=== PATIENT | female | born 1985 | race Caucasian/White ===

== ENCOUNTER 2020-06-25 13:15 | Emergency (ER) | payer SELFPAY ==
[~2020-06-25] VITALS: Ht 162.6 cm; Wt 86.0 kg
--- NOTE | 2020-06-25 14:05 | PHYS DOC ---
General Adult EDM: Chief Complaint: DIARRHEA HPI: HPI: Patient is a 34 year old female who presented to ER due to left lower abdominal pain associated with nausea vomiting diarrhea for 2 days. Patient denies any cough or fever, no chest pain. Patient denies any blood in her stool. Patient said all the symptoms started after she ate some homemade burrito. Review of Systems: Review of Systems: Constitutional: Denies fever or chills. [] Eyes: Denies change in visual acuity. [] HENT: Denies nasal congestion or sore throat. [] Respiratory: Denies cough or shortness of breath. [] Cardiovascular: Denies chest pain or edema. [] GI: Positive for abdominal pain, nausea vomiting, diarrhea. : Denies dysuria. [] Musculoskeletal: Denies back pain or joint pain. [] Integument: Denies rash. [] Neurologic: Denies headache, focal weakness or sensory changes. [] Endocrine: Denies polyuria or polydipsia. [] Lymphatic: Denies swollen glands. [] Psychiatric: Denies depression or anxiety. [] Heart Score: C/O Chest Pain: N/A Risk Factors: Risk Factors: DM, Current or recent (<one month) smoker, HTN, HLP, family history of CAD, obesity. Risk Scores: Score 0 - 3: 2.5% MACE over next 6 weeks - Discharge Home Score 4 - 6: 20.3% MACE over next 6 weeks - Admit for Clinical Observation Score 7 - 10: 72.7% MACE over next 6 weeks - Early Invasive Strategies Physical Exam: PE: Constitutional: Well developed, well nourished, no acute distress, non-toxic appearance. [] HENT: Normocephalic, atraumatic, bilateral external ears normal, oropharynx moist, no oral exudates, nose normal. [] Eyes: PERRLA, EOMI, conjunctiva normal, no discharge. [] Neck: Normal range of motion, no tenderness, supple, no stridor. [] Cardiovascular:Heart rate regular rhythm, no murmur [] Lungs & Thorax: Bilateral breath sounds clear to auscultation [] Abdomen: Bowel sounds normal, soft, LLQ tenderness TO PALPATION, NO GUARDING, NO REBOUND, no masses, no pulsatile masses. [] Skin: Warm, dry, no erythema, no rash. [] Back: No tenderness, no CVA tenderness. [] Extremities: No tenderness, no cyanosis, no clubbing, ROM intact, no edema. [] Neurologic: Alert and oriented X 3, normal motor function, normal sensory function, no focal deficits noted. [] Psychologic: Affect normal, judgement normal, mood normal. [] Current Patient Data: Labs: Laboratory Tests Test 06/25/20 14:10 06/25/20 14:20 White Blood Count 10.3 x10^3/uL Red Blood Count 4.14 x10^6/uL Hemoglobin 13.0 g/dL Hematocrit 38.5 % Mean Corpuscular Volume 93 fL Mean Corpuscular Hemoglobin 31 pg Mean Corpuscular Hemoglobin Concent 34 g/dL Red Cell Distribution Width 13.2 % Platelet Count 296 x10^3/uL Neutrophils (%) (Auto) 78 % Lymphocytes (%) (Auto) 16 % Monocytes (%) (Auto) 5 % Eosinophils (%) (Auto) 0 % Basophils (%) (Auto) 0 % Neutrophils # (Auto) 8.1 x10^3/uL Lymphocytes # (Auto) 1.7 x10^3/uL Monocytes # (Auto) 0.5 x10^3/uL Eosinophils # (Auto) 0.0 x10^3/uL Basophils # (Auto) 0.0 x10^3/uL Urine Collection Type Unknown Urine Color Yellow Urine Clarity Clear Urine pH 7.5 Urine Specific [place] 1.015 Urine Protein Negative mg/dL Urine Glucose (UA) Negative mg/dL Urine Ketones (Stick) Negative mg/dL Urine Blood Negative Urine Nitrite Negative Urine Bilirubin Negative Urine Urobilinogen Dipstick 0.2 mg/dL Urine Leukocyte Esterase Negative Urine RBC 1-2 /HPF Urine WBC 5-10 /HPF Urine Squamous Epithelial Cells Mod /LPF Urine Bacteria Moderate /HPF Sodium Level 144 mmol/L Potassium Level 4.2 mmol/L Chloride Level 107 mmol/L Carbon Dioxide Level 24 mmol/L Anion Gap 13 Blood Urea Nitrogen 17 mg/dL Creatinine 0.6 mg/dL Estimated GFR (Cockcroft-Gault) 115.1 BUN/Creatinine Ratio 28 Glucose Level 93 mg/dL Calcium Level 8.4 mg/dL Magnesium Level 2.1 mg/dL Total Bilirubin 0.2 mg/dL Aspartate Amino Transf (AST/SGOT) 21 U/L Alanine Aminotransferase (ALT/SGPT) 21 U/L Alkaline Phosphatase 73 U/L Total Protein 6.9 g/dL Albumin 4.0 g/dL Albumin/Globulin Ratio 1.4 Bedside Urine HCG, Qualitative Hcg negative Current Medications Medications (Trade) Dose Ordered Sig/Nishi Route PRN Reason Start Time Stop Time Status Last Admin Dose Admin Sodium Chloride 1,000 ml @ 1,000 mls/hr 1X ONCE IV 06/25/20 14:15 06/25/20 15:14 DC 06/25/20 14:30 Ondansetron HCl (Zofran) 4 mg 1X ONCE IVP 06/25/20 14:15 06/25/20 14:24 DC 06/25/20 14:30 Iohexol (Omnipaque 300 Mg/ml) 75 ml 1X ONCE IV 06/25/20 15:30 06/25/20 15:31 DC 06/25/20 15:53 Info (CONTRAST GIVEN -- Rx MONITORING) 1 each PRN DAILY PRN MC SEE COMMENTS 06/25/20 15:45 06/27/20 15:44 EKG: EKG: [] Radiology/Procedures: Radiology/Procedures: [][facility] [address] [place], [place] [id number] IMAGING REPORT Signed PATIENT: CLARK MCKEON ACCOUNT: [id number] : 1985 LOCATION: ER AGE: 34 SEX: F EXAM STATUS: REG ER ORD. PHYSICIAN: CHRISTI BANEGAS DO REASON: LOWER ABDOMINAL PAIN PROCEDURE: CT ABD PELV W/ IV CONTRST ONLY EXAM: CT Abdomen and Pelvis with IV contrast CLINICAL HISTORY: Lower abdominal pain COMPARISON: none TECHNIQUE: Helical CT of the abdomen and pelvis was performed following the administration of intravenous contrast. Axial, coronal and sagittal reformatted images were generated. PQRS compliance statement - One or more of the following individualized dose reduction techniques were utilized for this study: 1. Automated exposure control 2. Adjustment of the mA and/or kV according to patient size 3. Use of iterative reconstruction technique FINDINGS: Lower Chest: Linear opacities lower lobes likely scarring/atelectasis. Abdomen and Pelvis: No focal liver lesion. Gallbladder is contracted. No biliary ductal dilatation. Spleen is unremarkable. Adrenal glands are normal. Pancreas is unremarkable. Symmetric nephrograms. No focal renal lesion. No hydronephrosis. No hydroureter. Moderate distention of the bladder which is otherwise unremarkable. Moderate to large volume colonic stool content is seen. No small or large bowel dilatation. No bowel obstruction. Appendix is not seen but no significant pericecal inflammatory changes are seen. No abdominal or pelvic ascites. Aorta is normal in caliber. No abdominal or pelvic lymphadenopathy. Tampon is seen. Bones: No aggressive osseous lesion is seen. IMPRESSION: Moderate distention of the bladder, can be correlated for possible voluntary or involuntary causes of urinary retention. No bowel obstruction. Electronically signed by: Brandon Edge MD (06/25/2020 4:19 PM) [facility] DICTATED and SIGNED BY: BRANDON EDGE MD DATE: 06/25/20 [id number] 0 Course & Med Decision Making: Course & Med Decision Making Pertinent Labs and Imaging studies reviewed. (See chart for details) Patient is a 33-year-old female who presented to ER due to left lower abdominal pain with nausea vomiting diarrhea, CT scan of abdomen pelvic did not show any acute problem, her lab work was normal limits. Patient will be discharged home Dragon Disclaimer: Dragon Disclaimer: This electronic medical record was generated, in whole or in part, using a voice recognition dictation system. Departure Departure Impression: Primary Impression: Gastroenteritis Disposition: HOME / SELF CARE / HOMELESS Condition: IMPROVED Patient Instructions: Viral Gastroenteritis Additional Instructions: Thank you for visiting our Emergency Department. We appreciate you trusting us with your care. If any additional problems come up don't hesitate to return to visit us. Please follow up with your primary care provider so they can plan additional care if needed and know about the problem that you had. If symptoms worsen come back to the Emergency Department. Any concerning symptoms that start such as chest pain, shortness of air, weakness or numbness on one side of the body, running high fevers or any other concerning symptoms return to the ER. CHRISTI BANEGAS DO June 25, 2020 14:05
[2020-06-25] MEDS ORDERED: ONDANSETRON PF 4 MG/2 ML VIAL. IVP ONE (14:15)
[2020-06-25] MEDS ORDERED: IV NORMAL SALINE 1000ML BAG 1,000 ML IV ONE (14:15)
[2020-06-25 14:29] LABS: BASO % 0 % (0-3); EOS % 0 % (0-3); HEMATOCRIT 38.5 % (36.0-47.0); LYMPH # 1.7 x10^3/uL (1.0-4.8); LYMPH % 16 % (24-48); MEAN CORPUSCULAR HEMOGLOBIN 31 pg (25-35); MEAN CORPUSCULAR HGB CONC 34 g/dL (31-37); MEAN CORPUSCULAR VOLUME 93 fL (79-100); MONO # 0.5 x10^3/uL (0.0-1.1); MONO % 5 % (0-9); NEUT # 8.1 x10^3/uL (1.8-7.7); NEUT % 78 % (31-73); PLATELET COUNT 296 x10^3/uL (140-400); RED BLOOD COUNT 4.14 x10^6/uL (3.50-5.40); RED CELL DISTRIBUTION WIDTH 13.2 % (11.5-14.5); WHITE BLOOD COUNT 10.3 x10^3/uL (4.0-11.0)
[2020-06-25 14:30] LABS: BILIRUBIN,URINE NEGATIVE (NEG); CLARITY,URINE CLEAR; COLOR,URINE YELLOW; NITRITE,URINE NEGATIVE (NEG); PH,URINE 7.5 (<5.0-8.0); PROTEIN,URINE NEGATIVE (NEG-TRACE); UROBILINOGEN,URINE 0.2 mg/dL (0.2 mg/dL)
[2020-06-25 14:39] LABS: CALCIUM 8.4 mg/dL (8.5-10.1); CREATININE 0.6 mg/dL (0.6-1.0); GFR 115.1; POTASSIUM 4.2 mmol/L (3.5-5.1)
[2020-06-25 14:45] LABS: ALBUMIN/GLOBULIN RATIO 1.4 (1.0-1.7); MAGNESIUM 2.1 mg/dL (1.8-2.4); TOTAL BILIRUBIN 0.2 mg/dL (0.2-1.0); TOTAL PROTEIN 6.9 g/dL (6.4-8.2)
[2020-06-25 15:21] LABS: BACTERIA,URINE MODERATE /HPF (0-FEW)
[2020-06-25] MEDS ORDERED: IOHEXOL 300 MG/ML 100ML VIAL. IV ONE (15:30)
[2020-06-25] MEDS ORDERED: CONTRAST GIVEN. MC PRN (15:45)
--- NOTE | 2020-06-25 16:22 | RAD ---
EXAM: CT Abdomen and Pelvis with IV contrast CLINICAL HISTORY: Lower abdominal pain COMPARISON: none TECHNIQUE: Helical CT of the abdomen and pelvis was performed following the administration of intrave nous contrast. Axial, coronal and sagittal reformatted images were generated. PQRS compliance statement - One or more of the following individualized dose reduction techniques wer e utilized for this study: 1. Automated exposure control 2. Adjustment of the mA and/or kV according to patient size 3. Use of iterative reconstruction technique FINDINGS: Lower Chest: Linear opacities lower lobes likely scarring/atelectasis. Abdomen and Pelvis: No focal liver lesion. Gallbladder is contracted. No biliary ductal dilatation. Spleen is unremarkabl e. Adrenal glands are normal. Pancreas is unremarkable. Symmetric nephrograms. No focal renal lesion. No hydronephrosis. No hydroureter. Moderate distention of the bladder which is otherwise unremarkabl e. Moderate to large volume colonic stool content is seen. No small or large bowel dilatation. No bowel obstruction. Appendix is not seen but no significant pericecal inflammatory changes are seen. No abdominal or pelvic ascites. Aorta is normal in caliber. No abdominal or pelvic lymphadenopathy. T ampon is seen. Bones: No aggressive osseous lesion is seen. IMPRESSION: Moderate distention of the bladder, can be correlated for possible voluntary or involuntary causes of urinary retention. No bowel obstruction. Electronically signed by: Brandon Edge MD (06/25/2020 4:19 PM) [facility]
[2020-06-25 16:30] VITALS: BP 127/82
== END 2020-06-25 17:15 | disposition home or self-care (01) ==
LOC: ER 13:15
DX: K52.9 Noninfective gastroenteritis and colitis, unspecified (principal); N32.89 Other specified disorders of bladder
CPT/HCPCS: 36415; 74177; 80053; 81001; 81025; 83735; 85025; 87086; 96361; 96374; 99285; J2405; J7030; Q9967